=== PATIENT | male | born 1945 | race Caucasian/White ===

== ENCOUNTER 2016-08-16 08:57 | Emergency (ER) | payer OTHER ==
[2016-08-16 11:12] LABS: BASOPHILS 0.1 % (0.0-2.0); EOSINOPHILS 0.6 % (0-7); HEMATOCRIT 39.1 % (42.0-54.0); IMMATURE GRANULOCYTES 0.4 % (0-5); LYMPHOCYTES 4.2 % (15-50); MCH 30.4 pg (26.0-34.0); MCHC 33.2 g/dL (31.0-37.0); MCV 91.4 fL (80.0-100.0); MEAN PLATELET VOLUME 9.1 fL (7.4-10.4); MONOCYTES 3.4 % (2-11); NEUTROPHILS 91.3 % (40-80); RBC 4.28 10x6/uL (4.20-6.10); RDW 12.5 % (11.5-14.5); WBC 9.6 10x3/uL (4.8-10.8)
[2016-08-16 11:15] LABS: PLATELET COUNT 232 10x3/uL (130-400)
[2016-08-16 11:28] LABS: APTT 32.7 SECONDS (22.8-39.4); INR 2.02 (0.85-1.17); PROTIME 22.8 SECONDS (11.6-15.0)
[2016-08-16 11:39] LABS: ALBUMIN 3.7 g/dL (3.4-5.0); ANION GAP 13.9 mmol/L (8-16); BILIRUBIN - TOTAL 0.4 mg/dL (0.2-1.3); CALCIUM 9.3 mg/dL (8.5-10.1); CARBON DIOXIDE 27.9 mmol/L (21.0-32.0); POTASSIUM - SERUM 4.8 mmol/L (3.5-5.1); PROTEIN - SERUM 7.2 g/dL (6.4-8.2)
== END 2016-08-16 11:29 | disposition short-term general hospital (02) ==
LOC: D.ER 08:57
PROVIDERS: Emergency Medicine
DX: I80.12 Phlebitis and thrombophlebitis of left femoral vein (principal); I74.8 Embolism and thrombosis of other arteries; J44.9 Chronic obstructive pulmonary disease, unspecified; Z95.1 Presence of aortocoronary bypass graft

== ENCOUNTER 2016-10-24 10:19 | Emergency (ER) | payer OTHER ==
[2016-10-24 11:03] LABS: BASOPHILS 0.4 % (0.0-2.0); EOSINOPHILS 1.1 % (0-7); HEMATOCRIT 36.1 % (42.0-54.0); HEMOGLOBIN 11.7 g/dL (13.5-17.5); IMMATURE GRANULOCYTES 0.4 % (0-5); LYMPHOCYTES 10.3 % (15-50); MCHC 32.4 g/dL (31.0-37.0); MCV 92.6 fL (80.0-100.0); MEAN PLATELET VOLUME 10.7 fL (7.4-10.4); MONOCYTES 5.3 % (2-11); NEUTROPHILS 82.5 % (40-80); PLATELET COUNT 262 10x3/uL (130-400); RDW 15.7 % (11.5-14.5); WBC 13.2 10x3/uL (4.8-10.8)
[2016-10-24 11:19] LABS: INR 1.1 (0.85-1.17); PROTIME 14.1 SECONDS (11.6-15.0)
[2016-10-24 11:49] LABS: ALBUMIN 3.7 g/dL (3.4-5.0); ANION GAP 17.1 mmol/L (8-16); BILIRUBIN - TOTAL 0.39 mg/dL (0.2-1.3); CALCIUM 9.8 mg/dL (8.5-10.1); CREATININE - SERUM 1.8 mg/dL (0.6-1.3); POTASSIUM - SERUM 5.1 mmol/L (3.5-5.1); PROTEIN - SERUM 7.5 g/dL (6.4-8.2)
[2016-10-24 11:59] LABS: MAGNESIUM - SERUM 1.8 mg/dL (1.8-2.4)
[2016-10-24 12:01] LABS: TROPONIN-I 0.808 ng/mL (0.000-0.060)
[2016-10-24 13:08] LABS: APPEARANCE SLT CLOUDY (CLEAR); BACTERIA MODERATE /hpf (NONE SEEN); BILIRUBIN NEGATIVE (NEGATIVE); COLOR YELLOW (YELLOW); EPITHELIAL CELLS 0-5 /hpf (0-5); GLUCOSE NEGATIVE (NEGATIVE); KETONE NEGATIVE (NEGATIVE); LEUKOCYTE ESTERASE 2+ (NEGATIVE); MUCUS <1+ /lpf (NONE SEEN); NITRITE NEGATIVE (NEGATIVE); PROTEIN TRACE mg/dL (NEGATIVE); SPECIFIC GRAVITY 1.015 (1.005-1.020); UROBILINOGEN NORMAL (NORMAL)
== END 2016-10-24 23:00 | disposition short-term general hospital (02) ==
LOC: D.ER 10:19
PROVIDERS: Emergency Medicine
DX: R41.82 Altered mental status, unspecified (principal); R53.1 Weakness; R20.0 Anesthesia of skin; I10 Essential (primary) hypertension; J44.9 Chronic obstructive pulmonary disease, unspecified; I25.810 Atherosclerosis of coronary artery bypass graft(s) without angina pectoris; D64.9 Anemia, unspecified; E86.0 Dehydration; I50.9 Heart failure, unspecified; F17.200 Nicotine dependence, unspecified, uncomplicated